=== PATIENT | male | born 1940 | race Caucasian/White ===

== ENCOUNTER → 2017-01-11 | Outpatient (CLI) | payer MEDICARE, BC ==
[2015-11-01 21:00] VITALS: BP 119/86
[~2017-01-11] MED LIST: ARICEPT5 M1 PO; ARTANE 2MG2 MG PO; ARTANE2 MG PO; CARBIDOPA & LEV1 TA1 PO; CENTRUM1 TA1 PO; CLONAZEPAM0.5 MG PO; CO Q-1050 MG PO; COENZYME Q PO; COUMADIN 5MG5 MG/TAB PO; COUMADIN5 MG PO; DEPO-TESTOS200 MG/M1 IM; FLEXERIL 1010 MG/TAB PO; FLEXERIL10 MG PO; FLONASE ALLERG9.9 ML NS; NOVAPLUS DE200 MG/ML IM; PROTONIX 40MG T40 MG PO; PROTONIX40 MG PO; REQUIP XL6 MG PO; REVATIO20 MG PO; SIMVASTATIN40 M1 PO; SINEMET 25-1001 EACH PO; SOTALOL HCL120 MG PO; SOTALOL HYDROC120 MG PO; SYNTHROID0.125 MG PO; SYNTHROID137 MCG PO; THERAGRAN1 TA1 PO; VIAGRA100 MG PO; ZOCOR40 MG PO
== END ==
LOC: RAD 15:54
DX: K57.30 Diverticulosis of large intestine without perforation or abscess without bleeding (principal)

== ENCOUNTER → 2017-02-04 | Outpatient (CLI) | payer MEDICARE, BC ==
[2015-11-01 21:00] VITALS: BP 119/86
== END ==
LOC: LAB 10:08
DX: N40.1 Benign prostatic hyperplasia with lower urinary tract symptoms (principal); R35.1 Nocturia

== ENCOUNTER 2017-04-04 13:14 | Inpatient (IN) | payer MEDICARE, BC ==
[~2017-04-04] VITALS: Ht 182.9 cm; Wt 85.3 kg
[~2017-04-04 13:14] MED LIST changes: +ARICEPT10 M1 PO; -ARICEPT5 M1 PO; +BETAPACE PO; -SOTALOL HYDROC120 MG PO
[2017-04-04 15:59] VITALS: BP 176/88
[2017-04-04 17:20] VITALS: BP 176/88
[2017-04-04 18:08] VITALS: BP 162/78
[2017-04-04] MEDS ORDERED: [UNRECOGNIZED DRUG - OTHER] PO (18:24)
[2017-04-04] MEDS ORDERED: CEPHALEXIN500 M1 PO (18:29)
[2017-04-04] MEDS ORDERED: KEPPRA 500MG500 MG PO (18:31)
[2017-04-05 06:31] VITALS: BP 140/71
[2017-04-05 18:28] VITALS: BP 84/44
[2017-04-05 18:36] VITALS: BP 86/40
[2017-04-06 06:24] VITALS: BP 148/72
[2017-04-06 19:00] VITALS: BP 106/53
[2017-04-07 07:02] VITALS: BP 144/60
[2017-04-07 18:27] VITALS: BP 117/62
[2017-04-08 06:01] VITALS: BP 165/78
[2017-04-08 18:58] VITALS: BP 165/77
[2017-04-09 07:00] VITALS: BP 88/59
[2017-04-09 07:02] VITALS: BP 157/80
[2017-04-09 18:29] VITALS: BP 145/66
[2017-04-10 06:40] VITALS: BP 155/81
[2017-04-10 18:11] VITALS: BP 135/80
[2017-04-11 06:27] VITALS: BP 165/81
[2017-04-11 18:38] VITALS: BP 125/53
[2017-04-12 06:32] VITALS: BP 152/72
[2017-04-12 18:49] VITALS: BP 134/66
[2017-04-13 06:24] VITALS: BP 145/73
[2017-04-13 18:21] VITALS: BP 145/67
[2017-04-14 06:25] VITALS: BP 170/72
[2017-04-14 14:01] VITALS: BP 167/72
[2017-04-14 14:18] VITALS: BP 167/72
== END 2017-04-14 14:43 | DRG 950 ==
LOC: MED/SURG 13:14
PROVIDERS: ADMIT Nurse Practitioner Primary Care
DX: S06.6X9D Traumatic subarachnoid hemorrhage with loss of consciousness of unspecified duration, subsequent encounter (principal); S06.5X9D Traumatic subdural hemorrhage with loss of consciousness of unspecified duration, subsequent encounter; V44.5XXD Car driver injured in collision with heavy transport vehicle or bus in traffic accident, subsequent encounter; S22.20XD Unspecified fracture of sternum, subsequent encounter for fracture with routine healing; Z66 Do not resuscitate; Z95.0 Presence of cardiac pacemaker; G47.33 Obstructive sleep apnea (adult) (pediatric); K21.9 Gastro-esophageal reflux disease without esophagitis; G20 Parkinson's disease; I48.91 Unspecified atrial fibrillation; I10 Essential (primary) hypertension
CPT/HCPCS: J1650

== ENCOUNTER 2017-05-06 13:22 | Emergency (ER) | payer MEDICARE, BC ==
[~2017-05-06] VITALS: Ht 182.9 cm; Wt 84.5 kg
[~2017-05-06 13:22] MED LIST changes: +CEPHALEXIN500 M1 PO; +KEPPRA 500MG500 MG PO; +[UNRECOGNIZED DRUG - OTHER] PO
[2017-05-06 13:51] LABS: HEMATOCRIT 39.7 % (42.0-52.0); HEMOGLOBIN 13.2 g/dL (13.5-18.0); MEAN CELL VOLUME 96 fl (78-100); MEAN CORPUSCULAR HEMOGLOBIN 32 pg (27-31); MEAN CORPUSCULAR HGB CONC 33 g/dL (33-37); MEAN PLATELET VOLUME 9.3 fl (7.4-10.4); PLATELET COUNT 294 K/mm3 (130-400); RED BLOOD COUNT 4.15 M/mm3 (4.20-5.60); RED CELL DISTRIBUTION WIDTH 13.1 % (11.5-14.5); WHITE BLOOD COUNT 11.5 K/mm3 (4.8-10.8)
[2017-05-06 14:00] LABS: LYMPHOCYTE 8 % (20-51); MONOCYTE 9 % (3-10); NEUTROPHILS 78 % (42-75)
[2017-05-06 14:01] LABS: METAMYELOCYTE 3 % (0-0)
[2017-05-06 14:06] LABS: ALBUMIN 3.5 g/dL (3.5-5.0); CALCIUM 8.4 mg/dL (8.4-10.2); POTASSIUM 4.8 mmol/L (3.6-5.0); TOTAL BILIRUBIN 0.9 mg/dL (0.2-1.3)
[2017-05-06 14:16] LABS: CKMB ISOENZYME 4.3 ng/mL (0.6-3.5); TROPONIN-I 7.2 ng/mL (0.00-0.06)
[2017-05-06] MEDS ORDERED: SYNTHROID0.15 MG PO (14:34)
[2017-05-06] MEDS ORDERED: BETAPACE PO (14:35)
[2017-05-06] MEDS ORDERED: KLONOPIN 0.5MG0.5 MG PO (14:36)
[2017-05-06] MEDS ORDERED: MIRALAX17 GM PO (14:37)
[2017-05-06 15:20] VITALS: BP 126/80
== END 2017-05-06 15:02 | disposition short-term general hospital (02) ==
LOC: ED 13:22
PROVIDERS: Physician Assistant
DX: I21.3 ST elevation (STEMI) myocardial infarction of unspecified site (principal); I48.91 Unspecified atrial fibrillation; Z79.01 Long term (current) use of anticoagulants; G20 Parkinson's disease; Z95.0 Presence of cardiac pacemaker; Z88.5 Allergy status to narcotic agent; Z88.2 Allergy status to sulfonamides; Z88.8 Allergy status to other drugs, medicaments and biological substances